=== PATIENT | male | born 1990 | race Caucasian/White ===

== ENCOUNTER 2017-11-29 19:32 | Emergency (ER) | payer BC ==
[2017-11-29 19:50] VITALS: BP 136/72; O2SAT 99
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
[2017-11-29 21:00] VITALS: PULSE 84
== END 2017-11-29 20:45 | disposition home or self-care (01) ==
LOC: ED 19:32
DX: S80.01XA Contusion of right knee, initial encounter (principal); M25.561 Pain in right knee; V86.56XA Driver of dirt bike or motor/cross bike injured in nontraffic accident, initial encounter
CPT/HCPCS: 99284

== ENCOUNTER 2020-09-25 14:29 | Emergency (ER) | payer BC, MEDICAID ==
[2020-09-25 14:45] VITALS: BP 126/90; PULSE 103; O2SAT 99
--- NOTE | 2020-09-25 15:09 | ERPHSYRPT ---
- History of Present Illness Source: patient Patient Subjective Stated Complaint: Pt states "I do not know what happed but around 11 am friday morning my left hand started to go numb and limp. I was lifting allot the day before but this is weird." Triage Nursing Assessment: PT presented alert and oriented X 3, skin pwd. pt ambulates with an upright steady gait, able to speak in clear full sentences. Pt left hand warm to touch, pulse easily palpible, pt able to move hand, slight weakness noted. Physician History: 30 yo wm w L 1st/2nd digit numbness of L hand x 4 days. Numbness developed after carrying shingles 4 days ago. He is R handed and states that he had a similar problem in in R hand several years ago. Pt does drink 6-12 beers a day but denies passing out on arm. Denies LE weakness/headache/facial droop. Occurred: days ago (4 days) Method of Injury: unknown Quality: sharpness, other (Minimal pain) Severity of Pain-Current: mild Extremities Pain Location: hand: left Modifying Factors: Improves With: movement Associated Symptoms: No back pain, No chills, No chest discomfort, No chest pain, No dyspnea, No fever, No jaw pain, No nausea, No neck pain, No sweating, No short of breath, No vomiting Allergies/Adverse Reactions: No Known Drug Allergies Allergy (Verified 11/29/17 19:50) Home Medications: No Reportable Medications [No Reported Medications] 08/19/13 [History] Hx Tetanus, Diphtheria Vaccination/Date Given: No Hx Influenza Vaccination/Date Given: No Hx Pneumococcal Vaccination/Date Given: No Immunizations Up to Date: Yes Travel Risk - International Travel Have you traveled outside of the country in past 3 weeks: No - Coronavirus Screening Are you exhibiting any of the following symptoms?: No Close contact with a COVID-19 positive Pt in past 14-21 Days: No - Vaccine Status Have you recieved a Covid-19 vaccination: No - Review of Systems Constitutional: No Symptoms Eyes: No Symptoms Ears, Nose, & Throat: No Symptoms Respiratory: No Symptoms Cardiac: No Symptoms Abdominal/Gastrointestinal: No Symptoms Genitourinary Symptoms: No Symptoms Skin: No Symptoms Neurological: No Symptoms Psychological: No Symptoms Endocrine: No Symptoms Hematologic/Lymphatic: No Symptoms Immunological/Allergic: Pollen Allergy - Past Medical History Pertinent Past Medical History: Yes Neurological History: No Pertinent History ENT History: No Pertinent History Cardiac History: No Pertinent History Respiratory History: No Pertinent History Endocrine Medical History: No Pertinent History Musculoskeletal History: No Pertinent History GI Medical History: No Pertinent History History: No Pertinent History Psycho-Social History: Depression - Past Surgical History Past Surgical History: Yes Cardiac: No Pertinent History Respiratory: No Pertinent History Gastrointestinal: No Pertinent History Genitourinary: No Pertinent History Musculoskeletal: No Pertinent History Male Surgical History: No Pertinent History Other Surgical History: wisdom teeth - Social History Smoking Status: Current every day smoker How long have you smoked: years Exposure to second hand smoke: Yes Drug Use: marijuana Patient Lives Alone: No Significant Family History: no pertinent family hx - Nursing Vital Signs Nursing Vital Signs: Initial Vital Signs Temperature 98.4 F 09/25/20 14:39 Pulse Rate 103 H 09/25/20 14:39 Respiratory Rate 22 09/25/20 14:39 Blood Pressure 126/90 09/25/20 14:39 O2 Sat by Pulse Oximetry 99 09/25/20 14:39 Pain Scale Pain Intensity 0 - Physical Exam General Appearance: no apparent distress Eyes, Ears, Nose, Throat Exam: normal ENT inspection, TMs normal, pharynx normal Neck Exam: normal inspection, non-tender, supple, full range of motion, No Brudzinski, No Kernig's, No meningismus Cardiovascular/Respiratory Exam: normal breath sounds, tachycardia (Mild) Abdominal Exam: non-tender, soft Back Exam: normal inspection, normal range of motion, No CVA tenderness Shoulder Exam: normal inspection, non-tender Elbow/Forearm Exam: normal inspection, non-tender, no evidence of injury Wrist Exam: normal inspection, non-tender, no evidence of injury Hand Exam: normal inspection (L 1st/2nd digit mild-moderate decreased sensation 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 Will have pt keep using cockup splint that he came with and follow up with the orthoclinic for nerve conduction studies. Counseled pt/family regarding: diagnosis, need for follow-up - Departure Departure Disposition: Home Clinical Impression: Carpal tunnel syndrome of left wrist Condition: Stable Critical Care Time: No Referrals: LAURA MANTILLA [Primary Care Provider] - ORTHO - AJ LINTON NP [NON-STAFF PHY W/O PRIVILEGES] - Instructions: Carpal Tunnel Syndrome (DC) Additional Instructions: Continue to use splint Follow up with the orthopedic clinic M-Fr 8:00-10:00AM Forms: Ortho Referral
== END 2020-09-25 15:31 | disposition home or self-care (01) ==
LOC: ED 14:29
DX: G56.02 Carpal tunnel syndrome, left upper limb (principal)
CPT/HCPCS: 99283

== ENCOUNTER 2021-07-25 10:01 | Emergency (ER) | payer MEDICAID ==
[2021-07-25] MEDS ORDERED: TORAdol 30 mg Injection IV ONE (10:18)
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
[2021-07-25] MEDS ORDERED: TORAdol 30 mg Injection IM ONE (10:30)
[2021-07-25] MEDS ORDERED: TORAdol 30 mg Injection ONE (10:31)
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
[2021-07-25 11:31] VITALS: BP 132/97; PULSE 94; O2SAT 98
== END 2021-07-25 11:31 | disposition home or self-care (01) ==
LOC: ED 10:01
DX: S60.221A Contusion of right hand, initial encounter (principal); S60.211A Contusion of right wrist, initial encounter; W22.01XA Walked into wall, initial encounter; Z79.891 Long term (current) use of opiate analgesic; Z72.0 Tobacco use
CPT/HCPCS: 73110; 73130; 96372; 99284; A4570; J1885